=== PATIENT | male | born 1995 | race Two or more races ===

== ENCOUNTER 2021-08-15 15:53 | Emergency (ER) | payer OTHER ==
[~2021-08-15] VITALS: Ht 177.8 cm; Wt 100.0 kg
[2021-08-15 15:54] VITALS: BP 130/80
== END 2021-08-15 17:01 | disposition home or self-care (01) ==
LOC: ER 15:53
DX: R07.89 Other chest pain (principal); F41.9 Anxiety disorder, unspecified
CPT/HCPCS: 99283